=== PATIENT | male | born 1970 | race Caucasian/White ===

== ENCOUNTER 2022-11-13 10:36 | Day surgery (SDC) | payer OTHER ==
[~2022-11-13] VITALS: Ht 177.8 cm; Wt 83.1 kg
[~2022-11-13 10:36] MED LIST: GABA300 PO; IBUP400; KRILL OIL500 MG; TYLENOL; VITAMIN B125000 MC1; VITAMIN D310 MC4
[2022-11-13 13:07] VITALS: BP 108/88
== END 2022-11-13 12:50 | disposition home or self-care (01) ==
LOC: ORSCSDS 10:36
PROVIDERS: Student in an Organized Health Care Education/Training Program
PROC: 0DBM8ZX Excision of Descending Colon, Via Natural or Artificial Opening Endoscopic, Diagnostic (ICD-10-PCS; principal; 2022-11-13 11:45)
PROC: 0DBP8ZX Excision of Rectum, Via Natural or Artificial Opening Endoscopic, Diagnostic (ICD-10-PCS; principal; 2022-11-13 11:45)
PROC: 0DBL8ZX Excision of Transverse Colon, Via Natural or Artificial Opening Endoscopic, Diagnostic (ICD-10-PCS; principal; 2022-11-13 11:45)
PROC: 3E0H8KZ Introduction of Other Diagnostic Substance into Lower GI, Via Natural or Artificial Opening Endoscopic (ICD-10-PCS; principal; 2022-11-13 11:45)
PROC: 0DBN8ZX Excision of Sigmoid Colon, Via Natural or Artificial Opening Endoscopic, Diagnostic (ICD-10-PCS; principal; 2022-11-13 11:45)
DX: K59.09 Other constipation (principal); C18.6 Malignant neoplasm of descending colon; C18.7 Malignant neoplasm of sigmoid colon; D12.3 Benign neoplasm of transverse colon; K62.1 Rectal polyp; K57.30 Diverticulosis of large intestine without perforation or abscess without bleeding; Z87.891 Personal history of nicotine dependence; Z85.828 Personal history of other malignant neoplasm of skin; E78.5 Hyperlipidemia, unspecified; M79.7 Fibromyalgia; Z79.899 Other long term (current) drug therapy
CPT/HCPCS: 88305; J2704; J7120

== ENCOUNTER 2022-12-31 07:23 | Inpatient (IN) | payer OTHER ==
[~2022-12-31] VITALS: Ht 177.8 cm; Wt 82.2 kg
[2022-12-31] VITALS (35 sets, daily range): BP systolic 101–152; BP diastolic 65–101
[~2022-12-31 07:23] MED LIST changes: +CLIMARA1 EACH PO; +FISH OIL 1,2001 EAC7 PO; +IBUP600 PO; +LIVALO2 MG PO; -TYLENOL; +TYLENOL PO
[2022-12-31] MEDS ORDERED: SPIR50 PO (08:02)
--- NOTE | 2022-12-31 08:26 | NUR ---
Ambulatory in Day Surgery History, Chart, Medications and Allergies reviewed before start of procedure. Pre-Op teaching done. Pt verbalizes understanding. Patient States Post-Procedure ride home has been arranged.
--- NOTE | 2022-12-31 15:58 | NUR ---
POST OP: REPORT RECEIVED FROM [employer] KIM. PT TO UNIT AT 1525, A/O, VSS. EPIDURAL SITE WNL. SENSATION IS DECREASED FROM L1-L2 ON L SIDE. PT ABLE TO MOVE LEGS. PT RATING PAIN 5/10 AT INCISION SITE, REPORTS PAIN TOLERABLE. EDUCATED ON USE OF BOLUS BUTTON AND ENCOURAGED TO USE IF NEEDED. FLUIDS INFUSING. DARIA DRESSING INTACT. PT GIVEN CALL LIGHT, PLAN IS FOR HOURLY ASSESSMENT OF EPIDURAL.
--- NOTE | 2022-12-31 16:56 | NUR ---
REPORT PASSED TO TWAN SHAH
--- NOTE | 2022-12-31 17:03 | NUR ---
PT EDUCATED ON FIRE SAFETY/IGNITION RISK
[2022-12-31 19:23] LABS: Source, Urine Foley catheter
[2022-12-31 19:52] LABS: Bilirubin, Urine Neg (Neg); Blood, Urine 4+ (Neg); Color, Urine Yellow (P-Yellow); Glucose Qualitative, Urine Neg (Neg); Ketones, Urine 4+ (Neg); Leukocyte Esterase, Urine 1+ (Neg); Nitrite, Urine Neg (Neg); Protein, Urine 1+ (Neg); Specific Gravity, Urine 1.015 (1.003-1.022); Urobilinogen, Urine NORM (Normal)
--- NOTE | 2022-12-31 20:08 | NUR ---
BLADDER PAIN WHEN CARE WAS ASSUMED PT REPORTED BLADDER PAIN. HE REPORTED FEELING LIKE HE NEEDED TO VOID AND COULDN'T. WOODRUFF CATH ASSESS AND IT WAS DETERMINED TO BE FUNCTIONING PROPERLY. ATTEMPTED TO ADJUST POSITION OF CATHETER/STAT LOCK, PT REPORTED IMPROVED PAIN MANAGEMENT WHEN CATHETER WAS BEING MOVED/REPOSITIONED BUT PAIN IMMEDIATELY RETURNED AFTER MOVING CATHETER. DR. QUACH NOTIFIED AND SUGGESTED REPOSITIONING THE WOODRUFF CATH, SINCE THIS HAD ALREADY BEEN ATTEMPTED UNSUCCESSFULLY REMOVAL AND REINSERTION WAS DETERMINED TO BE THE BEST OPTION. 12FRENCH WOODRUFF CATH PLACED WITH LIDOCAINE AND PT TOLERATED WELL BUT PAIN RETURNED IMMEDIATELY AFTER INSERTION WAS COMPLETE. ALSO ATTEMPTED REPOSITIONING PATIENT WITH NO IMPROVEMENT. PT REPORTS THIS IS SIMILAR TO THE PAIN HE HAS HAD FOR THE LAST 18 MONTHS WHEN VOIDING EXCEPT IT IS CONSTANT. [employer] UPSET OPERATOR NOTIFIED DR. RIBEIRO OF CONCERNS ABOUT PT. EPIDURAL APPEARS TO BE FUNCTIONING PROPERLY AND PT HAS BEEN INSTRUCTED TO USE EPIDURAL DEMAND BUTTON, PT DENIES INCREASED COMFORT. PT APPEARS TO HAVE DECREASED SENSATION BETWEEN T9 AND L2, HOWEVER HE CONTINUES TO HAVE BLADDER PAIN AND CONSTANTLY FEELS THE NEED TO VOID. AWAITING ADVICE/ROUNDING BY DR. RIBEIRO. ANNALEE TRENT FROM PACU ASSISTED WITH BREATHING TECHNIQUES TO ASSIST IN PAIN MANAGEMENT/CALMING. REPORT GIVEN TO EDUIN BRYANT.
[2022-12-31 20:42] LABS: Appearance, Urine Hazy (Clear)
[2022-12-31 20:43] LABS: Bacteria Mod /hpf; Squamous Epithelial Cells Rare /hpf (Few); White Blood Cells, Urine 0-2 /hpf (0-5)
[2022-12-31 20:44] LABS: Amorphous Light (0-Heavy); Mucus Light (0-Heavy)
[2023-01-01] VITALS (24 sets, daily range): BP systolic 92–117; BP diastolic 58–71
--- NOTE | 2023-01-01 00:22 | NUR ---
UPDATE ON BLADDER PAIN RECEIVED REPORT AND ASSUMED CARE OF PATIENT. DR. RIBEIRO ROUNDED AND ASSESSED EPIDURAL TO BE IN WORKING ORDER WITH NO ISSUES. ORDER FOR TORADOL, PERCOCET, AND TYLENOL RECEIVED AND PATIENT IS MEDICATED PER ORDERS. PATIENT IS CURRENTLY RESTING COMFORTABLY AND TOLERATING SIPS OF WATER AND ICE CHIPS. VS WNL. Q1 EPIDURAL CHECKS AND ROUNDING. CALL LIGHT IN REACH.
[2023-01-01 04:28] LABS: BASOPHILS ABSOLUTE AUTO 0.02 K/mm3 (0.00-0.23); BASOPHILS PERCENT AUTO 0 % (0-2); EOSINOPHILS ABSOLUTE AUTO 0.04 K/mm3 (0.00-0.68); EOSINOPHILS PERCENT AUTO 0 % (0-6); Hematocrit 33.7 % (37.0-53.0); Hemoglobin 11.3 g/dL (13.5-17.5); IMMATURE GRAN ABSOLUTE AUTO 0.02 K/mm3 (0.00-0.10); IMMATURE GRAN PERCENT AUTO 0 % (0-1); LYMPHOCYTES ABSOLUTE AUTO 1.68 K/mm3 (0.84-5.20); LYMPHOCYTES PERCENT AUTO 17 % (21-46); MONOCYTES ABSOLUTE AUTO 0.97 K/mm3 (0.16-1.47); MONOCYTES PERCENT AUTO 10 % (4-13); Mean Corpuscular HGB 28.3 pg (26.0-34.0); Mean Corpuscular HGB Conc 33.5 g/dL (31.5-36.5); Mean Corpuscular Volume 85 fL (80-100); Mean Platelet Volume 9.1 fL (9.1-12.4); NEUTROPHILS PERCENT AUTO 72 % (41-73); Platelet Count 195 K/mm3 (150-400); RDW Coefficient Variation 13.3 % (11.7-14.2); RDW Standard Deviation 41.3 fL (35.1-46.3); Red Blood Cell Count 3.99 M/mm3 (4.30-5.90); White Blood Cell Count 9.73 K/mm3 (4.00-11.30)
[2023-01-01 05:03] LABS: Bun/Creatinine Ratio 12.4 (12.0-20.0); Creatinine, Blood 0.89 mg/dL (0.60-1.20); Potassium, Blood 3.6 mmol/L (3.5-5.5)
--- NOTE | 2023-01-01 05:15 | NUR ---
SHIFT SUMMARY POD1 SIGMOID COLLECTOMY, W/EPIDURAL. Q1 EPIDURAL AND VITALS CHECK. PAIN IS BETTER MANAGED THAN AT START OF SHIFT. PATIENT WAS ABLE TO REST T/O NIGHT. WOODRUFF IS PATENT AND DRAINING YELLOW CLEAR URINE. EPIDURAL IS WNL, SITE IS C/D/I. DARIA DRESSING IS WNL,AND COMPRESSED. SLIGHT SHADOWING IN MIDDLE OF DRESSING. PATIENT TOLERATING SIPS OF WATER AND ICE CHIPS. DENIES N/V, DENIES PASSING GAS. HYPOACTIVE BOWEL TONES. VSS, WILL REPORT TO DAY RN.
--- NOTE | 2023-01-01 09:44 | NUR ---
PT EDUCATED ON FIRE SAFETY.
--- NOTE | 2023-01-01 17:01 | NUR ---
SUMMARY NO ACUTE CHANGES T/O SHIFT. PT HAS REPORTED ADEQUATE PAIN CONTROL T/O DAY. EPIDURAL SITE CLEAR. PT REPORTS DECREASED SENSATION FROM APPROXIMATELY T8-L2. WOODRUFF CATH DRAINING DUMONT YELLOW URINE. DARIA DRESSING COMPRESSED. TOLERATING CLEAR LIQUIDS. CALL LIGHT AND EPIDURAL BAND SAW FILER WITHIN REACH.
[2023-01-02 00:57] VITALS: BP 108/68
--- NOTE | 2023-01-02 04:34 | NUR ---
SHIFT SUMMARY POD2 SIG. COLLECTOMY. EPIDRUAL SITE IS CLEAR AND INTACT. PATIENT REPORTS NUMBNESS FROM CHEST TO MID-THIGH. WOODRUFF PATENT AND DRAINING YELLOW URINE. PAIN IS WELL MANAGED. TOLERATING CL DIET. DARIA DRAIN TO MIDLINE IS COMPRESSED, WITH LIGHT SHADOWING IN MIDDLE OF DRESSING. PATIENT TO WORK WITH THERAPY TODAY. CALLS APPROPRIATELY. VSS, WILL REPORT TO DAY RN.
[2023-01-02 05:30] VITALS: BP 114/74
[2023-01-02 07:24] VITALS: BP 118/69
--- NOTE | 2023-01-02 07:36 | NUR ---
CARE ASSUMPTION This RN assumed care at 0700. vital signs stable. continous spo2 monitor due to epidural, spo2 >95% on room air. patient is alert and oriented x4. patient reports no chest pain/pressure or shortness of breath. patient reports no pain at this time and pain has been managed by medications. patient as manoj dressing on abd with woundvac that is compressed, scant amount of serosanguineous drainage noted. epidrual in place on patient back and site is clean dry and secured. see shift assessment for further detials. plan of care is up to date.
--- NOTE | 2023-01-02 09:15 | NUR ---
SAFETY THIS RN ASSESSED AND EDUCATED ON FIRE IGNITION AND SOURCES. PATIENT VERBALIZED UNDERSTANDING AND DENIES HAVING ANY FIRE IGNITION OR SOURCES. PATIENT IS NOT A SMOKER.
[2023-01-02 15:43] VITALS: BP 129/79
--- NOTE | 2023-01-02 16:47 | NUR ---
SHIFT SUMMARY patient neuro remains unchanged. no acute changes this shift. vitals remain stable. patient had two bowel movements this shift. patient had a bed bath and linen change. plan of care remains up to date. call light within reach.
[2023-01-02 19:55] VITALS: BP 126/84
[2023-01-03 04:59] VITALS: BP 140/82
--- NOTE | 2023-01-03 05:31 | NUR ---
SHIFT SUMMARY AOX4. VSS. POD 3- SIGMOID COLECTOMY. REPORTS MILD 6/10 PAIN IN L SIDE ABD QUADS, STATES MIN RELIEF AFTER USING BSC & PASSING GAS. HAD SM LIQUID, WATERY BROWN/GREEN BM. DENIES N/V, TOLERATING FULL LIQUID DIET. HYPERACTIVE BT. REPORTS FEELING BLOATED. TENDER TO PALPATION. MIDLINE DARIA DRESSING INTACT c 3 SM CIRCULAR SHADOWING ON DRESSING. PLAN TO DC WOODRUFF & EPIDURAL TODAY, BOTH STILL INTACT & PATENT. CALL LIGHT IN REACH. PT DENIES HAVING ANY IGNITION SOURCES.
[2023-01-03 07:36] VITALS: BP 119/77
--- NOTE | 2023-01-03 14:40 | NUR ---
EPIDURAL REMOVED. PT TOLERATED WELL. REPORTS PAIN AT 5/10 AND STATES
--- NOTE | 2023-01-03 14:41 | NUR ---
EPIDURAL REMOVED AT THIS TIME. PT TOLERATED WELL. REPORTS PAIN AT 5/10 BUT STATES THIS IS COMFORTABLE FOR HIM. EDUCATED ON IMPORTANCE OF CALLING ONCE PAIN BEGINS TO RISE. PT AMBULATING HALLS WELL.
[2023-01-03 15:05] VITALS: BP 129/83
--- NOTE | 2023-01-03 16:43 | NUR ---
SHIFT SUMMARY POD 3 SIGMOID COLECTOMY PT REPORTS PAIN TOLERABLE DURING SHIFT. EPIDURAL REMOVED AROUND 1400. WOODRUFF OUT AT 1600. MEDICATION PER EMAR. TOLERATING DIET WELL, REPORTS MINIMAL APPETITE AND IS NOT WANTING TO ADVANCE DIET QUICKLY. PASSING SMALL LIQUID STOOLS, PASSING FLATUS. REPORTS DISTENTION AND ABDOMINAL DISCOMFORT MUCH IMPROVED SINCE YESTERDAY.
[2023-01-03 19:29] VITALS: BP 137/82
[2023-01-04 04:24] VITALS: BP 126/77
[2023-01-04 04:32] LABS: Bun/Creatinine Ratio 7.6 (12.0-20.0); Calcium, Blood 8.7 mg/dL (8.5-10.1); Creatinine, Blood 0.79 mg/dL (0.60-1.20); Magnesium, Blood 2.1 mg/dL (1.6-2.4); Phosphorus, Blood 3.3 mg/dL (2.5-4.9); Potassium, Blood 3.3 mmol/L (3.5-5.5)
--- NOTE | 2023-01-04 05:15 | NUR ---
SHIFT SUMMARY AOX4. VSS. POD 4-SIGMOID COLECTOMY. REPORTED 6-7/10 PAIN 2x TONIGHT & MEDICATED c 1 TAB PERCOCET EA TIME THEN PT REPORTED PAIN RELIEF. DENIES N/V. REPORTS INCREASED BLOATING TONIGHT. TOLERATING PO, HOWEVER STATES MIN APPETITE. MIDLINE DARIA DRESSING INTACT c MIN SHADOWING. HAS BEEN UP MULTx TO VOID IN URINAL. STEADY ON FEET & IND IN RM. CALL LIGHT IN REACH.
[2023-01-04 07:50] VITALS: BP 122/76
[2023-01-04 15:39] VITALS: BP 127/77
[2023-01-04 19:17] VITALS: BP 128/72
[2023-01-05 05:58] VITALS: BP 124/83
--- NOTE | 2023-01-05 07:30 | NUR ---
SHIFT SUMMARY AOX4. VSS. POD 4-SIGMOID COLECTOMY. DARIA DRESSING IN PLACE c SM AMOUNT SHADOWING ON DRESSING. DENIES N/V. TOLERATING REG DIET. ACTIVE BT. REPORTS -12/29 MID ABD PAIN @INCISION SITE, WORSE c MOVEMENT OR COUGHING/LAUGHING, DOES STATE PAIN RELIEF c 2 PERCOCET. IND IN RM. CALL LIGHT IN REACH.
[2023-01-05 07:31] VITALS: BP 120/78
[2023-01-05 15:14] VITALS: BP 110/71
--- NOTE | 2023-01-05 18:51 | NUR ---
SHIFT SUMMARY PT A&OX4, VSS/RA, AVTAR PO REG DIET, VOIDING/BMX2, AMB INDEPENDENT IN ROOM/HALLWAY, PAIN MANAGED. POD5 SIG COLECTOMY, DARIA DRY/INTAKE. FIRE PREVENTION EDU/IGNITION RESOURCES ASSESSED. WILL REPORT TO ONCOMING NOC RN.
[2023-01-05 19:19] VITALS: BP 116/78
[2023-01-06 05:15] VITALS: BP 110/74
--- NOTE | 2023-01-06 07:25 | NUR ---
SUMMARY PT HOPING FOR DISCHARGE TODAY.
--- NOTE | 2023-01-06 07:27 | NUR ---
NO RISKS OF IGNITION /FIRE HAZARD IDENTIFIED.
[2023-01-06 07:31] VITALS: BP 119/77
[2023-01-06] MEDS ORDERED: Percocet 5-3251 EACH PO (11:47)
--- NOTE | 2023-01-06 12:30 | NUR ---
DISCHARGE SUMMARY PT A&0X4, VSS/RA, AVTAR PO REG DIET, VOIDING/BMs, AMB INDEPENDENTLY, PAIN MANAGED. DC INS PROVIDED. PT REP UNDERSTANDING THOSE INSTRUCTIONS. LEFT FLOOR, DECLINING WC, WITH ALL PERSONAL POSSESSIONS, TO GO HOME WITH SISTER.
== END 2023-01-06 12:30 | disposition home or self-care (01) | DRG 331 ==
LOC: SURS 07:23 → PRE IP 09:00 → SURS 14:47
PROVIDERS: Surgery; ADMIT Surgery
PROC: 0DTN0ZZ Resection of Sigmoid Colon, Open Approach (ICD-10-PCS; principal; 2022-12-31 09:00)
DX: C18.7 Malignant neoplasm of sigmoid colon (principal); E78.5 Hyperlipidemia, unspecified; M79.7 Fibromyalgia; G62.9 Polyneuropathy, unspecified; F12.90 Cannabis use, unspecified, uncomplicated; G43.909 Migraine, unspecified, not intractable, without status migrainosus; K40.90 Unilateral inguinal hernia, without obstruction or gangrene, not specified as recurrent; Z85.828 Personal history of other malignant neoplasm of skin; Z98.890 Other specified postprocedural states; Z87.891 Personal history of nicotine dependence; Z79.899 Other long term (current) drug therapy
CPT/HCPCS: 36415; 80048; 81001; 83735; 84100; 85025; 87086; 88304; 88309; 93005; 93010; 94760; 94762; A9270; J0295; J1170; J1650; J1885; J2250; J2704; J3010; J7120; V2790

== ENCOUNTER 2023-02-05 06:36 | Day surgery (SDC) | payer OTHER ==
[~2023-02-05] VITALS: Ht 177.8 cm; Wt 83.2 kg
[2023-02-05] VITALS (8 sets, daily range): BP systolic 108–118; BP diastolic 69–89
[~2023-02-05 06:36] MED LIST changes: +Percocet 5-3251 EACH PO; +SPIR50 PO
--- NOTE | 2023-02-05 06:50 | NUR ---
Ambulatory in Day Surgery History, Chart, Medications and Allergies reviewed before start of procedure.Pre-Op teaching done. Pt verbalizes understanding. Patient confirms NPO status and agrees with scheduled surgery. Patient States Post-Procedure ride home has been arranged.
[2023-02-05] MEDS ORDERED: TRAM50 PO (06:57)
--- NOTE | 2023-02-05 09:18 | NUR ---
PT AXOX4, ABLE TO REPOSITION SELF IN BED, REQUESTING PO FLUIDS, TOLERATING PO FLUIDS. PT HAS TWO INCISION SITES, ONE SMALL INCISION ON R SIDE OF NECK COVERED WITH SINGLE STERI STRIP WITH SCANT SEROSANGUINEOUS MATERIAL AND ONE SITE ON R CHEST COVERED WITH GAUZE AND CLEAR WINDOW TAPE THAT IS CDI.
--- NOTE | 2023-02-05 09:50 | NUR ---
Discharge instructions reviewed with patient. Patient verbalizes understanding. Copy given to patient to take home. Dressing to procedure site clean, dry, intact with no visible drainage, swelling, erythema or bruising noted. Patient States Post-Procedure ride home has been arranged. Discharged via wheelchair to private car for ride home. ALL BELONGINGS RETURNED TO PATIENT INCLUDING ONE SET OF EYE GLASSES.
== END 2023-02-06 22:55 | disposition home or self-care (01) ==
LOC: ORSCMMR 06:36 → ORD 08:00 → ORSCMMR 02-06 22:55
DX: C18.9 Malignant neoplasm of colon, unspecified (principal); E78.00 Pure hypercholesterolemia, unspecified; M79.7 Fibromyalgia; Z79.899 Other long term (current) drug therapy
CPT/HCPCS: 77001; A9270; C1788; J0690; J1100; J1642; J2405; J2704; J3010; J7120

== ENCOUNTER 2024-01-19 09:09 | Day surgery (SDC) | payer OTHER ==
[~2024-01-19] VITALS: Ht 177.8 cm; Wt 93.0 kg
[~2024-01-19 09:09] MED LIST changes: +Lactated Ringer's 1,000 ML IV ONE; +TRAM50 PO; +propofoL 50 ML IV ONE
[2024-01-19] MEDS ORDERED: PREG25 (09:59)
[2024-01-19] MEDS ORDERED: Lactated Ringer's 1,000 ML IV ONE (10:24)
[2024-01-19 11:28] VITALS: BP 104/67
== END 2024-01-19 11:27 | disposition home or self-care (01) ==
LOC: ORSCSDS 09:09
PROVIDERS: Surgery
PROC: 0DJD8ZZ Inspection of Lower Intestinal Tract, Via Natural or Artificial Opening Endoscopic (ICD-10-PCS; principal; 2024-01-19 10:30)
DX: Z85.038 Personal history of other malignant neoplasm of large intestine (principal); K57.30 Diverticulosis of large intestine without perforation or abscess without bleeding; E78.5 Hyperlipidemia, unspecified; M79.7 Fibromyalgia; Z79.899 Other long term (current) drug therapy
CPT/HCPCS: J2704; J7120